=== PATIENT | male | born 1960 | race Two or more races ===

== ENCOUNTER 2016-09-18 22:50 | Emergency (ER) | payer SELFPAY ==
[~2016-09-18] VITALS: Ht 175.3 cm; Wt 80.0 kg
[2016-09-18 22:54] VITALS: Ht 175.3 cm; Wt 80.0 kg
--- NOTE | 2016-09-19 01:45 | ERA ---
ER Documentation Chief Complaint Date/Time DATE: 09/19/16 TIME: 01:44 Chief Complaint palpitations since yesterday HPI The patient is a 56-year-old male, presenting to the ER because of palpitation after working out. He recently started working out about 2 weeks ago, 3 times a week . He experienced palpitation when he works out. He denies syncope, near syncope, weakness, neck pain, chest pain, dyspnea, abdominal pain. Symptoms are getting better if he is not working out. He does not smoke nor drink nor does any illicit drug Past medical history: CAD Past surgical history: Stent PCI 6 years ago ROS All systems reviewed and are negative except as per history of present illness. Allergies Allergies: Coded Allergies: No Known Allergy (Unverified , 09/18/16) Physical Exam Vitals Vital Signs Date Time Temp Pulse Resp B/P Pulse Ox O2 Delivery O2 Flow Rate FiO2 09/19/16 04:56 98.2 100 16 133/82 100 Room Air 09/19/16 03:25 98.2 114 16 145/87 100 Room Air 09/19/16 02:32 Nasal Cannula 3 09/19/16 01:31 110 16 149/90 100 Room Air 09/18/16 22:54 97.7 115 18 150/93 98 Physical Exam Const: No acute distress. Head: Atraumatic. Eyes: Normal Conjunctiva. ENT: Normal External Ears, Nose and Mouth. Neck: Full range of motion. No meningismus. Resp: Clear to auscultation bilaterally. Cardio: Regular rate but tachycardic Abd: Soft, non distended, normal bowel sounds, non tender. Skin: No petechiae or rashes. Back: No midline or flank tenderness. Ext: No cyanosis, or edema. Neur: Awake and alert. No focal deficit Psych: Normal Mood and Affect. Result Diagram: 09/19/16 0223 09/19/16 0223 Results 24 hrs Laboratory Tests Test 09/19/16 02:23 09/19/16 02:35 White Blood Count 6.910^3/ul Red Blood Count 5.4110^6/ul Hemoglobin 16.4g/dl Hematocrit 46.3% Mean Corpuscular Volume 85.6fl Mean Corpuscular Hemoglobin 30.3pg Mean Corpuscular Hemoglobin Concent 35.4g/dl Red Cell Distribution Width 12.7% Platelet Count 19498^3/UL Mean Platelet Volume 9.8fl Neutrophils % 83.4% Lymphocytes % 5.7% Monocytes % 9.6% Eosinophils % 0.3% Basophils % 0.4% Nucleated Red Blood Cells % 0.0/100WBC Neutrophils # 5.710^3/ul Lymphocytes # 0.410^3/ul Monocytes # 0.710^3/ul Eosinophils # 0.010^3/ul Basophils # 0.010^3/ul Nucleated Red Blood Cells # 0.010^3/ul Prothrombin Time 13.1Sec Prothrombin Time Ratio 1.0 INR International Normalized Ratio 0.99 Activated Partial Thromboplast Time 27.8Sec Sodium Level 136mmol/L Potassium Level 4.0mmol/L Chloride Level 100mmol/L Carbon Dioxide Level 29mmol/L Anion Gap 11 Blood Urea Nitrogen 15mg/dl Creatinine 0.91mg/dl Glucose Level 131mg/dl Calcium Level 9.1mg/dl Troponin I < 0.012ng/ml Thyroid Stimulating Hormone (TSH) 0.473MIU/L Ethyl Alcohol Level < 10.0mg/dl Urine Opiates Screen Negative Urine Barbiturates Negative Urine Amphetamines Screen Negative Urine Benzodiazepines Screen Negative Urine Cocaine Screen Negative Urine Cannabinoids Negative Procedures/MDM EKG: Read by emergency physician Rate/Rhythm: Sinus tachycardia 110 beats/min QRS, ST, T-waves: No ST elevation, no T inversion Impression: Abnormal EKG [place] [id number] Radiology Main Line: [phone] DIAGNOSTIC IMAGING REPORT Patient: CAROLINE ARINEY : 1960 Age: 56 Sex: M [id number] DOS: 09/19/16 0206 Ordering MD: ADARSH MIKE MD Location: E/R Room/Bed: PROCEDURE: CHEST - 1 VIEW CLINICAL INDICATION: 56-year-old male with chest pain. TECHNIQUE: A single frontal AP semi-erect portable view of the chest was performed. The images were reviewed on a PACS workstation. COMPARISON: None. FINDINGS: There is a shallow inspiration accentuating the heart size. Accounting for this , the cardiomediastinal silhouette is within normal limits. There is mild bibasilar subsegmental atelectasis. There is no evidence for an infiltrate. There is no evidence for congestive heart failure. There is no evidence for pneumothorax. The osseous structures are intact. IMPRESSION: Shallow inspiration with mild bibasilar subsegmental atelectasis. .Mj Rose MD, Date Time Electronically viewed and signed by .Mj Rose MD, on 09/19/2016 04:45 .M/ CC: ADARSH MIKE MD MEDICAL MAKING DECISION: The patient is a 56-year-old male, presenting to the ER because of transient palpitation with exercise. He remained well and without the symptoms in the ER The differential diagnoses considered include but are not limited to thyroid disease, stress, anxieties, increased caffeine intake, cardiac ischemia Departure Diagnosis: Primary Impression: Palpitations Condition: Good Comments I discussed the findings with the patient. I advised the patient to follow-up with his lead neurodiagnostic technologist in about 1-2 days, sooner if needed and return if any concern. ADARSH MIKE MD September 19, 2016 01:45
[2016-09-19 02:48] LABS: ADD SCAN DIFF NO
[2016-09-19 02:50] LABS: ABNORMAL IP MESSAGE 1; BASOPHILS % 0.4 % (0.0-2.0); EOSINOPHILS % 0.3 % (0.0-7.0); HEMATOCRIT 46.3 % (42.0-52.0); HEMOGLOBIN 16.4 g/dl (14.0-18.0); LYMPHOCYTES # 0.4 10^3/ul (0.8-2.9); LYMPHOCYTES % 5.7 % (15.0-51.0); MEAN CORPUSCULAR HEMOGLOBIN 30.3 pg (29.0-33.0); MEAN CORPUSCULAR HGB CONC 35.4 g/dl (32.0-37.0); MEAN CORPUSCULAR VOLUME 85.6 fl (82.0-101.0); MEAN PLATELET VOLUME 9.8 fl (7.4-10.4); MONOCYTE # 0.7 10^3/ul (0.3-0.9); MONOCYTES % 9.6 % (0.0-11.0); NEUTROPHIL # 5.7 10^3/ul (1.6-7.5); NEUTROPHILS % 83.4 % (39.0-77.0); PLATELET COUNT 186 10^3/UL (140-415); RED BLOOD COUNT 5.41 10^6/ul (4.70-6.10); RED CELL DISTRIBUTION WIDTH 12.7 % (11.5-14.5); WHITE BLOOD COUNT 6.9 10^3/ul (4.8-10.8)
[2016-09-19 03:15] LABS: CHLORIDE 100 mmol/L (97-110); INR 0.99; PROTIME 13.1 Sec (12.2-14.2); SODIUM 136 mmol/L (135-144)
[2016-09-19 03:16] LABS: PARTIAL THROMBOPLASTIN TIME 27.8 Sec (25.0-35.0)
[2016-09-19 03:18] LABS: ANION GAP 11 (8-16); BLOOD UREA NITROGEN 15 mg/dl (7-20); CARBON DIOXIDE 29 mmol/L (21-31); CREATININE 0.91 mg/dl (0.61-1.24)
[2016-09-19 03:19] LABS: CALCIUM 9.1 mg/dl (8.4-10.2); GLUCOSE 131 mg/dl (70-220)
[2016-09-19 03:28] LABS: ETHANOL < 10.0 mg/dl
[2016-09-19 03:47] LABS: BARBITURATES Negative (NEGATIVE); BENZODIAZEPINES Negative (NEGATIVE); CANNABINOIDS Negative (NEGATIVE); COCAINE Negative (NEGATIVE); OPIATES Negative (NEGATIVE)
[2016-09-19 03:47] LABS: TROPONIN-I < 0.012 ng/ml (0.00-0.12)
[2016-09-19 04:44] LABS: THYROID STIMULATING HORMONE 0.473 MIU/L (0.465-4.680)
--- NOTE | 2016-09-19 04:45 | RADRPT ---
PROCEDURE: CHEST - 1 VIEW CLINICAL INDICATION: 56-year-old male with chest pain. TECHNIQUE: A single frontal AP semi-erect portable view of the chest was performed. The images we re reviewed on a PACS workstation. COMPARISON: None. FINDINGS: There is a shallow inspiration accentuating the heart size. Accounting for this, the cardiomediasti nal silhouette is within normal limits. There is mild bibasilar subsegmental atelectasis. There is no evidence for an infiltrate. There is no evidence for congestive heart failure. There is no evid ence for pneumothorax. The osseous structures are intact. IMPRESSION: Shallow inspiration with mild bibasilar subsegmental atelectasis. .Mj Rose MD, MD Date Time Electronically viewed and signed by .Mj Rose MD, on 09/19/2016 04:45 .M/
[2016-09-19 04:56] VITALS: BP 133/82; PULSE 100; RESP 16; TEMP 98.2
== END 2016-09-19 05:16 | disposition home or self-care (01) ==
LOC: E/R 22:50
DX: R00.2 Palpitations (principal); I25.10 Atherosclerotic heart disease of native coronary artery without angina pectoris; R07.9 Chest pain, unspecified; Z98.61 Coronary angioplasty status
CPT/HCPCS: 36415; 71010; 80048; 80306; 80307; 84443; 84484; 85025; 85610; 85730; 93005